=== PATIENT | female | born 1965 | race Caucasian/White ===

== ENCOUNTER 2017-09-18 17:30 | Emergency (ER) | payer OTHER ==
[~2017-09-18] VITALS: Ht 162.6 cm; Wt 65.0 kg
[~2017-09-18 17:30] MED LIST: Z.0.NO CURRENT MEDS; ZITH250T PO
[2017-09-18 17:32] VITALS: BP 171/100; PULSE 78; RESP 18; TEMP 98.3; O2SAT 97
[2017-09-18] MEDS ORDERED: BACT800T5 PO (17:55)
[2017-09-18] MEDS ORDERED: LOMO2.5T PO (17:55)
[2017-09-18] MEDS ORDERED: ZOFR4TAB3 SL (17:55)
--- NOTE | 2017-09-18 17:56 | PD ---
HPI Chief Complaint: GI Complaint Time Seen by Provider: 17:47 Travel History International Travel<30 days: No Contact w/Intl Traveler<30days: No Traveled to known affect area: No History of Present Illness HPI 52 yo F c/o abdominal pain in RUQ for two days describes it as burning. decreased appetite since Friday. diarrhea x two days q five minutes. pure liquid diarrhea. 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 patient has also had vomiting during this time. no vb/vd. no similar priors. no urinary complaint. PFSH Past Medical History ?: Not Menopausal: No : 2 Para: 2 Miscarriage: 0 : 0 Social History Alcohol Use: Yes (OCCAS) Tobacco Use: No Substance Use: No Allergies-Medications (Allergen,Severity, Reaction): Coded Allergies: No Known Allergies (Verified Adverse Reaction, Unknown, 09/18/17) Reported Meds & Prescriptions Reported Meds & Active Scripts Active Bactrim DS (Sulfamethoxazole-Trimethoprim) 800-160 Mg Tab 1 Tab PO BID Zofran Odt (Ondansetron Odt) 4 Mg Tab 4 Mg SL Q8HR PRN Lomotil (Diphenoxylate-Atropine) 2.5-0.025 Mg Tab 2 Tab PO Q6H PRN Review of Systems Except as stated in HPI: all other systems reviewed are Neg General / Constitutional: No: Fever Gastrointestinal: Positive: Nausea, Vomiting, Diarrhea, Abdominal Pain Physical Exam Narrative GENERAL: 52 yo F, WNWD, NAD, speaking full sentences SKIN: Warm and dry. HEAD: Atraumatic. Normocephalic. EYES: Pupils equal and round. No scleral icterus. No injection or drainage. ENT: No nasal bleeding or discharge. Mucous membranes pink and moist. NECK: Trachea midline. No JVD. CARDIOVASCULAR: Regular rate and rhythm. RESPIRATORY: No accessory muscle use. Clear to auscultation. Breath sounds equal bilaterally. GASTROINTESTINAL: soft. no tenderness to palpation about the right abdomen. no flank tenderness to percussion. MUSCULOSKELETAL: Extremities without clubbing, cyanosis, or edema. No obvious deformities. NEUROLOGICAL: Awake and alert. No obvious cranial nerve deficits. Motor grossly within normal limits. Five out of 5 muscle strength in the arms and legs. Normal speech. PSYCHIATRIC: Appropriate mood and affect; insight and judgment normal. Data Data Last Documented VS Vital Signs Date Time Temp Pulse Resp B/P (MAP) Pulse Ox O2 Delivery O2 Flow Rate FiO2 09/18/17 18:00 09/18/17 17:38 16 09/18/17 17:32 98.3 78 97 Room Air vs reviewed Orders Orders Ed Discharge Order (09/18/17 17:56) MDM Medical Decision Making Medical Screen Exam Complete: Yes Emergency Medical Condition: Yes Medical Record Reviewed: Yes Differential Diagnosis Constipation, Gastritis, Acute Cholecystitis, Biliary Colic, Pancreatitis, GUTIÉRREZ , Hepatitis, Bowel Obstruction, Cystitis, Mesenteric Ischemia, AAA, Appendicitis , Renal Stone/Hydronephrosis, GERD, perforated viscous Narrative Course Nature of presentation is considered benign and most likely keeping with a gastroenteritis. Bactrim, Zofran and Lomotil prescribed. Return precautions discussed specifically any pain over the next 8 hours. Patient agreeable with plan. Diagnosis Primary Impression: Nausea vomiting and diarrhea Med/Other Pt SpecificInfo: Prescription(s) given Scripts Sulfamethoxazole-Trimethoprim (Bactrim DS) 800-160 Mg Tab 1 TAB PO BID for Infection, #6 TAB 0 Refills Prov: Karthik Anne MD 09/18/17 Ondansetron Odt (Zofran Odt) 4 Mg Tab 4 MG SL Q8HR Y for Nausea/Vomiting, #12 TAB 0 Refills Prov: Karthik Anne MD 09/18/17 Diphenoxylate-Atropine (Lomotil) 2.5-0.025 Mg Tab 2 TAB PO Q6H Y for DIARRHEA, #12 TAB 0 Refills Prov: Karthik Anne MD 09/18/17 Disposition: 01 DISCHARGE HOME Condition: Stable Karthik Anne MD Sep 18, 2017 17:56
== END 2017-09-18 18:11 | disposition home or self-care (01) ==
LOC: NEPK 17:30
DX: R11.2 Nausea with vomiting, unspecified (principal); R19.7 Diarrhea, unspecified; R10.11 Right upper quadrant pain
CPT/HCPCS: 99284

== ENCOUNTER 2017-09-20 00:10 | Emergency (ER) | payer OTHER ==
[~2017-09-20] VITALS: Ht 160 cm; Wt 62.0 kg
[~2017-09-20 00:10] MED LIST changes: +BACT800T5 PO; +LOMO2.5T PO; -Z.0.NO CURRENT MEDS; -ZITH250T PO; +ZOFR4TAB3 SL
[2017-09-20 00:12] VITALS: BP 197/104; PULSE 82; RESP 16; TEMP 98.1; O2SAT 98
[2017-09-20] MEDS ORDERED: LEVO25TA4 PO (00:41)
[2017-09-20] MEDS ORDERED: LEVO50TA4 PO (00:41)
[2017-09-20] MEDS ORDERED: ALUMINUM/MAGNESIUM/SIMETH 30 ML CUP PO ONE (01:00)
[2017-09-20] MEDS ORDERED: LIDOCAINE VISCOUS 2% SOLN 15 ML UDC PO ONE (01:00)
[2017-09-20] MEDS ORDERED: SODIUM CHLORIDE 0.9% FLUSH 10 ML FLUSH IV FLUSH PRN (01:00)
[2017-09-20] MEDS ORDERED: DIATRIZOATE MEGLUM/DIATRIZOATE SOD 9 ML CUP ONE (01:15)
--- NOTE | 2017-09-20 01:52 | PD ---
HPI Chief Complaint: Abdominal Pain Time Seen by Provider: 00:42 Travel History International Travel<30 days: No Contact w/Intl Traveler<30days: No Traveled to known affect area: No History of Present Illness HPI Patient is a 52-year-old female presents emergency department for evaluation of epigastric and right upper quadrant abdominal pain. The patient was here 2 days ago for similar. She had complete workup minus a CAT scan but she has not been able to fill her medications because the pharmacies are closed with Thanksgiving. She was told by the previous provider to return if her pain worsened and she states it has. States is sharp in nature no radiation associated with mild nausea without vomiting no blood in the stool no blood in the emesis. PFSH Past Medical History Thyroid Disease: Yes (HYPO) ?: Not Menopausal: No : 2 Para: 2 Miscarriage: 0 : 0 Past Surgical History Surgical History: No Previous Surgery Social History Alcohol Use: Yes (OCCAS) Tobacco Use: No Substance Use: No Allergies-Medications (Allergen,Severity, Reaction): Coded Allergies: No Known Allergies (Verified Adverse Reaction, Unknown, 09/20/17) Reported Meds & Prescriptions Reported Meds & Active Scripts Active Omeprazole 40 Mg Cap 40 Mg PO DAILY Bactrim DS (Sulfamethoxazole-Trimethoprim) 800-160 Mg Tab 1 Tab PO BID Zofran Odt (Ondansetron Odt) 4 Mg Tab 4 Mg SL Q8HR PRN Lomotil (Diphenoxylate-Atropine) 2.5-0.025 Mg Tab 2 Tab PO Q6H PRN Reported Levothyroxine (Levothyroxine Sodium) 25 Mcg Tab 25 Mcg PO EVERY OTHER DAY Levothyroxine (Levothyroxine Sodium) 50 Mcg Tab 50 Mcg PO EVERY OTHER DAY Review of Systems Except as stated in HPI: all other systems reviewed are Neg Physical Exam Narrative GENERAL: Well-developed well-nourished no obvious distress SKIN: Focused skin assessment warm/dry. HEAD: Atraumatic. Normocephalic. EYES: Pupils equal and round. No scleral icterus. No injection or drainage. ENT: No nasal bleeding or discharge. Mucous membranes pink and moist. NECK: Trachea midline. No JVD. CARDIOVASCULAR: Regular rate and rhythm. No murmur appreciated. RESPIRATORY: No accessory muscle use. Clear to auscultation. Breath sounds equal bilaterally. GASTROINTESTINAL: Abdomen soft, non-tender, nondistended. Hepatic and splenic margins not palpable. No rebound no percussive tenderness no CVA tenderness. MUSCULOSKELETAL: No obvious deformities. No clubbing. No cyanosis. No edema. NEUROLOGICAL: Awake and alert. No obvious cranial nerve deficits. Motor grossly within normal limits. Normal speech. PSYCHIATRIC: Appropriate mood and affect; insight and judgment normal. Data Data Last Documented VS Vital Signs Date Time Temp Pulse Resp B/P (MAP) Pulse Ox O2 Delivery O2 Flow Rate FiO2 09/20/17 04:13 09/20/17 00:12 98.1 [address] Abd/Pel W Iv Contrast(Rout) (09/20/17 ) Iv Access Insert/Monitor (09/20/17 01:00) Ecg Monitoring (09/20/17 01:00) Oximetry (09/20/17 01:00) Sodium Chloride 0.9% Flush (Ns Flush) (09/20/17 01:00) Al-Mag Hy-Si 40-40-4 Mg/Ml Liq (Mag-Al P (09/20/17 01:00) Lidocaine 2% Viscous (Xylocaine 2% Visco (09/20/17 01:00) Oral Contrast - Adult (09/20/17 01:02) Diatrizoate Liq ( Gastroview Liq) (09/20/17 01:15) Iohexol 350 Inj (Omnipaque 350 Inj) (09/20/17 02:37) Ed Discharge Order (09/20/17 03:16) MDM Medical Decision Making Medical Screen Exam Complete: Yes Emergency Medical Condition: Yes Differential Diagnosis Gastritis, gastroenteritis, reflux, peptic ulcer disease, cholecystitis, pancreatitis unlikely. Narrative Course Last 24 hours Impressions Abdomen/Pelvis CT 09/20/17 0000 Signed Impressions: Service Date/Time: Wednesday, September 20, 2017 02:34 - CONCLUSION: 1. Cholelithiasis with 2 calcified gallstones with no wall thickening or inflammatory change. 2. 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 3. Benign cysts in the dome of the liver. 4. Inhomogeneous uterus with apparent leiomyoma.. Tr Hanson MD Patient roomed emergency department, appears well in no distress, completely relieved by GI cocktail her symptoms are highly suspect for peptic ulcer disease. Recommended that she follow-up with a vehicle fare collector. Discussed symptomatic management returned ED criteria. There is no indication further workup this time. I did discuss the incidental findings of her CAT scan with her and recommend follow-up with a TREATING ENGINEER at her discretion for Pap smear. Diagnosis Primary Impression: Epigastric pain Med/Other Pt SpecificInfo: Prescription(s) given Scripts Omeprazole (Omeprazole) 40 Mg Cap 40 MG PO DAILY, #30 CAP 0 Refills Prov: Jaden Martini MD 09/20/17 Disposition: 01 DISCHARGE HOME Condition: Stable Jaden Martini MD Sep 20, 2017 01:52
[2017-09-20] MEDS ORDERED: IOHEXOL 350 MG/ML 10 ML VIAL (for RAD DIAG) IVCONTRAST ONE (02:37)
--- NOTE | 2017-09-20 02:56 | RADRPT ---
EXAM DATE/TIME: 09/20/2017 02:34 [facility] COMPARISON: No previous studies available for comparison. INDICATIONS : Right upper quadrant pain with diarrhea. IV CONTRAST: 100 cc Omnipaque 350 (iohexol) IV ORAL CONTRAST: Prescribed oral contrast ingested. RADIATION DOSE: 7.09 CTDIvol (mGy) MEDICAL HISTORY : None SURGICAL HISTORY : None. ENCOUNTER: Initial ACUITY: 1 day PAIN SCALE: 5/10 LOCATION: Right upper quadrant abdomen TECHNIQUE: Volumetric scanning of the abdomen and pelvis was performed. Using automated exposure control and ad justment of the mA and/or kV according to patient size, radiation dose was kept as low as reasonably achievable to obtain optimal diagnostic quality images. DICOM format image data is available electro nically for review and comparison. FINDINGS: LOWER LUNGS: The visualized lower lungs are clear. LIVER: Homogeneous density with benign cystic structures in the dome of the liver. There is no dilation of t he biliary tree. There are 2 small calcified gallstones with no wall thickening or inflammatory mckeon e. SPLEEN: Normal size without lesion. PANCREAS: Within normal limits. KIDNEYS: Normal in size and shape. There is no mass, stone or hydronephrosis. ADRENAL GLANDS: Within normal limits. VASCULAR: There is no aortic aneurysm. BOWEL/MESENTERY: There is partial malrotation of the bowel with the: Ascending colon located centrally in multiple loo ps of small bowel to the left of the colon. The stomach, small bowel, and colon demonstrate no acute abnormality. There is no free intraperitoneal air or fluid. ABDOMINAL WALL: Within normal limits. RETROPERITONEUM: There is no lymphadenopathy. BLADDER: No wall thickening or mass. REPRODUCTIVE: There is a 3 cm rounded mass in the central uterus which is mildly low density. INGUINAL: There is no lymphadenopathy or hernia. MUSCULOSKELETAL: Within normal limits for patient age. CONCLUSION: 1. Cholelithiasis with 2 calcified gallstones with no wall thickening or inflammatory change. 2. 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 3. Benign cysts in the dome of the liver. 4. Inhomogeneous uterus with apparent leiomyoma.. Tr Hanson MD on September 20, 2017 at 2:49 Board Certified Radiologist. This report was verified electronically.
[2017-09-20] MEDS ORDERED: OMEP40CA2 PO (03:38)
== END 2017-09-20 04:14 | disposition home or self-care (01) ==
LOC: NEPC 00:10
DX: R10.13 Epigastric pain (principal); K80.20 Calculus of gallbladder without cholecystitis without obstruction; K80.80 Other cholelithiasis without obstruction; K76.89 Other specified diseases of liver; E03.9 Hypothyroidism, unspecified; Z79.899 Other long term (current) drug therapy
CPT/HCPCS: 74177; 99285; Q9963; Q9967